=== PATIENT | male | born 1965 | race Hispanic/Latino ===

== ENCOUNTER 2018-12-02 00:43 | Emergency (ER) | payer SELFPAY ==
[2018-12-02 01:08] VITALS: BP 129/81; PULSE 103; RESP 20; TEMP 98; O2SAT 96
--- NOTE | 2018-12-02 01:18 | C.PDOC ---
History Of Present Illness Pt states he doesn't know why they brought him to the ed. Denies any suicidal or homicidal ideation. States he had some beers. Ambulating without any difficulty and clinically sober Time Seen by Provider: 12/02/18 01:16 Chief Complaint (Nursing): Substance Abuse History Per: Patient History/Exam Limitations: no limitations Onset/Duration Of Symptoms: Hrs Current Symptoms Are (Timing): Gone Suicide/Self Injury Attempted (Context): None Modifying Factor(s): Alcohol Severity: None Associated Symptoms: denies: Anger, Anxiety, Depression Involuntary Hold By: None Recent travel outside of the [place]: No Additional History Per: Patient Past Medical History Reviewed: Historical Data, Nursing Documentation, Vital Signs Vital Signs: Last Vital Signs Temp 98 F 12/02/18 01:01 Pulse 103 H 12/02/18 01:01 Resp 20 12/02/18 01:01 BP 129/81 12/02/18 01:01 Pulse Ox 96 12/02/18 01:01 - Medical History PMH: Depression, Schizophrenia Denies: Anxiety, Bipolar Disorder, Diabetes, Hepatitis, HIV, HTN, Personality Disorder, Chronic Kidney Disease, Seizures, Sexually Transmitted Disease - [facility] Procedures GROUP PSYCHOTHERAPY (09/14/17) Family History: States: Unknown Family Hx - Social History Hx Alcohol Use: Yes (drinks 2X a month) Hx Substance Use: No Review Of Systems Constitutional: Negative for: Fever, Chills Respiratory: Negative for: Shortness of Breath Gastrointestinal: Negative for: Abdominal Pain Musculoskeletal: Negative for: Back Pain Skin: Negative for: Rash Neurological: Negative for: Weakness Psych: Negative for: Anxiety Physical Exam - Physical Exam Appears: Non-toxic, No Acute Distress Chest: Symmetrical Cardiovascular: Rhythm Regular Gastrointestinal/Abdominal: Soft, No Tenderness Extremity: Normal ROM Extremity: Bilateral: Atraumatic Neurological/Psych: Oriented x3 ED Course And Treatment O2 Sat by Pulse Oximetry: 96 Pulse Ox Interpretation: Normal Reevaluation Time: 01:20 Reassessment Condition: Improved Medical Decision Making Medical Decision Making: Upon provider reevaluation patient is feeling better, is medically stable, and requires no further treatment in the ED at this time. Patient will be discharged home . Counseling was provided and all questions were answered regarding diagnosis and need for follow up with the referred clinic. There is agreement to discharge plan. Return if symptoms persist or worsen. Disposition Counseled Patient/Family Regarding: Studies Performed, Diagnosis, Need For Followup - Disposition Referrals: [facility] [Outside] Disposition: HOME/ ROUTINE Disposition Time: 01:16 Condition: FAIR Instructions: Alcohol Use - When Is Drinking a Problem? - Clinical Impression Clinical Impression: Alcohol abuse
== END 2018-12-02 01:43 | disposition home or self-care (01) ==
LOC: C.ER 00:43
DX: F10.10 Alcohol abuse, uncomplicated (principal); Y90.9 Presence of alcohol in blood, level not specified

== ENCOUNTER 2018-12-02 14:10 | Inpatient (IN) | payer SELFPAY ==
[2018-12-02 16:44] LABS: BASO # 0.1 K/uL (0.0-0.2); BASO % 1.1 % (0.0-2.0); EOS # 0.2 K/uL (0.0-0.7); EOS % 2.1 % (0.0-4.0); HEMOGLOBIN 15.5 g/dL (12.0-18.0); LYMPH # 1.7 K/uL (1.0-4.3); LYMPH % 20.9 % (20.0-40.0); MEAN CELL VOLUME 95.6 fL (80.0-94.0); MEAN CORPUSCULAR HEMOGLOBIN 33.3 pg (27.0-31.0); MEAN CORPUSCULAR HGB CONC 34.9 g/dL (33.0-37.0); MEAN PLATELET VOLUME 8.8 fL (7.2-11.7); MONO # 0.6 K/uL (0.0-0.8); MONO % 7.9 % (0.0-10.0); NEUT # 5.4 K/uL (1.8-7.0); NRBC % 0.1 % (0.0-2.0); RBC 4.64 Mil/uL (4.40-5.90); RED CELL DISTRIBUTION WIDTH 14.2 % (11.5-14.5); WHITE BLOOD COUNT 7.9 K/uL (4.8-10.8)
[2018-12-02 17:00] LABS: ALB/GLOB RATIO 1.6 (1.0-2.1); ALBUMIN 4.6 g/dL (3.5-5.0); ALT/SGPT 19 U/L (21-72); AST/SGOT 33 U/L (17-59); BLOOD UREA NITROGEN 18 mg/dL (9-20); CALCIUM 9.3 mg/dl (8.6-10.4); GFR NON-AFRICAN AMERICAN > 60
[2018-12-02 17:08] LABS: URINE BACTERIA RARE (<OCC); URINE BILIRUBIN NEGATIVE (NEGATIVE); URINE BLOOD NEGATIVE (NEGATIVE); URINE CLARITY Clear (Clear); URINE COLOR Yellow (YELLOW); URINE GLUCOSE (UA) NORMAL (Normal); URINE LEUKOCYTE ESTERASE NEG Leu/uL (Negative); URINE PROTEIN NEGATIVE (NEGATIVE); URINE UROBILINOGEN NORMAL mg/dL (0.2-1.0)
[2018-12-02 17:42] LABS: BARBITURATES, UR NEGATIVE (NEGATIVE); BENZODIAZEPINES, UR NEGATIVE (NEGATIVE); OPIATES, UR NEGATIVE (NEGATIVE); PHENCYCLIDINE, UR NEGATIVE (NEGATIVE)
--- NOTE | 2018-12-02 18:02 | C.PDOC ---
History Of Present Illness 53 year old male presents to the ED requesting cocaine and alcohol detox. Patient states his last use was yesterday. He denies suicidal/homicidal ideation at this time. Time Seen by Provider: 12/02/18 15:23 Chief Complaint (Nursing): Substance Abuse History Per: Patient History/Exam Limitations: no limitations Onset/Duration Of Symptoms: Hrs Current Symptoms Are (Timing): Still Present Suicide/Self Injury Attempted (Context): None Modifying Factor(s): Alcohol, Cocaine Associated Symptoms: denies: Suicidal Thoughts, Suicidal Plan Involuntary Hold By: None Recent travel outside of the [place]: No Additional History Per: Patient Past Medical History Reviewed: Historical Data, Nursing Documentation, Vital Signs Vital Signs: Last Vital Signs Temp 98 F 12/02/18 14:19 Pulse 102 H 12/02/18 14:19 Resp 20 12/02/18 14:19 BP 126/87 12/02/18 14:19 Pulse Ox 96 12/02/18 14:19 - Medical History PMH: Depression, Schizophrenia Denies: Anxiety, Bipolar Disorder, Diabetes, Hepatitis, HIV, HTN, Personality Disorder, Chronic Kidney Disease, Seizures, Sexually Transmitted Disease Surgical History: No Surg Hx - [facility] Procedures GROUP PSYCHOTHERAPY (09/14/17) Family History: States: Unknown Family Hx - Social History Hx Alcohol Use: Yes (drinks 2X a month) Hx Substance Use: Yes - Immunization History Hx Tetanus Toxoid Vaccination: No Hx Influenza Vaccination: Yes (05/2018) Hx Pneumococcal Vaccination: No Review Of Systems Psych: Positive for: Other (alcohol and cocaine detox ) Physical Exam - Physical Exam Appears: Non-toxic, No Acute Distress Skin: Normal Color, Warm, Dry Head: Atraumatic, Normacephalic Eye(s): bilateral: Normal Inspection Oral Mucosa: Moist Neck: Supple Chest: Symmetrical, No Deformity, No Tenderness Cardiovascular: Rhythm Regular, No Murmur Respiratory: Normal Breath Sounds, No Rales, No Rhonchi, No Wheezing Gastrointestinal/Abdominal: Normal Exam, Bowel Sounds, Soft Extremity: Normal ROM, Capillary Refill (less than 2 seconds ) Neurological/Psych: Oriented x3, Normal Speech, Normal Cognition ED Course And Treatment - Laboratory Results Result Diagrams: 12/02/18 16:38 12/02/18 16:38 Lab Results: Total Bilirubin 1.0 mg/dL (0.2-1.3) 12/02/18 16:38 AST 33 U/L (17-59) 12/02/18 16:38 ALT 19 U/L (21-72) L 12/02/18 16:38 Alkaline Phosphatase 94 U/L (38-126) 12/02/18 16:38 Total Protein 7.5 g/dL (6.3-8.3) 12/02/18 16:38 Albumin 4.6 g/dL (3.5-5.0) 12/02/18 16:38 Globulin 2.9 gm/dL (2.2-3.9) 12/02/18 16:38 Albumin/Globulin Ratio 1.6 (1.0-2.1) 12/02/18 16:38 Urine Color Yellow (YELLOW) 12/02/18 17:00 Urine Clarity Clear (Clear) 12/02/18 17:00 Urine pH 7.0 (5.0-8.0) 12/02/18 17:00 Ur Specific [place] 1.019 (1.003-1.030) 12/02/18 17:00 Urine Protein Negative mg/dL (NEGATIVE) 12/02/18 17:00 Urine Glucose (UA) Normal mg/dL (Normal) 12/02/18 17:00 Urine Ketones Negative mg/dL (NEGATIVE) 12/02/18 17:00 Urine Blood Negative (NEGATIVE) 12/02/18 17:00 Urine Nitrate Negative (NEGATIVE) 12/02/18 17:00 Urine Bilirubin Negative (NEGATIVE) 12/02/18 17:00 Urine Urobilinogen Normal mg/dL (0.2-1.0) 12/02/18 17:00 Ur Leukocyte Esterase Neg Tony/uL (Negative) 12/02/18 17:00 Urine WBC (Auto) 1 /hpf (0-5) 12/02/18 17:00 Urine RBC (Auto) < 1 /hpf (0-3) 12/02/18 17:00 Urine Bacteria Rare (<OCC) 12/02/18 17:00 O2 Sat by Pulse Oximetry: 96 (on RA ) Pulse Ox Interpretation: Normal Medical Decision Making Medical Decision Making: Assessment: substance abuse Progress: Bloodwork, urinalysis and Librium PO given. Disposition Discussed With : Gasper Tony Doctor Will See Patient In The: Hospital Counseled Patient/Family Regarding: Studies Performed, Diagnosis - Disposition Disposition: HOSPITALIZED Disposition Time: 18:02 Condition: FAIR - Clinical Impression Clinical Impression: Alcohol abuse - Scribe Statement The provider has reviewed the documentation as recorded by the Scribe (Carmen Webb) Provider Attestation: All medical record entries made by the Scribe were at my direction and perso edwina dictated by me. I have reviewed the chart and agree that the record accurately reflects my personal performance of the history, physical exam, medical decision making, and the department course for this patient. I have also personally directed, reviewed, and agree with the discharge instructions and disposition.
--- NOTE | 2018-12-02 21:04 | PCM.BM ---
Treatment Plan Problems - Problems identified on initial assessmt Anxiety related to substance use Date Initiated: 12/02/18 Time Initiated: 21:01 Assessment reference: NA Status: Active Denial Date Initiated: 12/02/18 Time Initiated: 21:04 Assessment reference: NA Status: Active Defensive Coping Date Initiated: 12/02/18 Time Initiated: 21:04 Assessment reference: NA Status: Active Treatment assets and liabiliti Patient Assests: cooperative, resourceful, cognitively intact Patient Liabilities: financial problems, poor support system, substance abuse - Milieu Protocol Maintain good personal hygiene: daily Encourage regular showers, daily Remind patient to perform daily oral care, daily Assist patient to perform ADL's Conduct patient checks and document Observation sheet: Q15 minutes Maintain personal safety: every shift Educate patient to report safety concerns to staff, every shift Monitor environment for contraband/sharps Medication safety: Monitor for expected outcome, potential side effects: every shift, Assess barriers to learning: every shift, Assess readiness for medication education: every shift
--- NOTE | 2018-12-03 07:51 | PCM.PSYCH ---
Initial Psychiatric Evaluation - Initial Psychiatric Evaluation Type of Admission: Voluntary Legal Status: Capacity Chief Complaint (in patient's own words): I came here to get help.' History of Present Illness and Precipitating Events: Patient is a 53 year old male, who came to the [facility] for alcohol detox. Patient reports a long history of drinking and schizophrenia. He reports history of multiple inpatient psychiatric hospitalizations. He was last discharged from [facility] last year. He reports of being compliant with his outpatient treatment and follow-up PACT team. He reports history of drinking and cocaine abuse. As per the patient he drinks 6-14 12oz beers on a daily basis. He also reports of abusing cocaine off and on $60-$80 worth. As per the patient, recently he relapsed on drinking and started consuming increasing amounts of beers. Yesterday he consumed more than 7 beers, started experiencing withdrawal symptoms, so he came to the hospital to get help. Patient reports withdrawal symptoms including anxiety, shakes, sweating, headaches, cramps and nausea. He reports irritable mood but denies any feelings of hopelessness or helplessness. He denies any suicidal ideation or any homicidal ideation. He denies any auditory or visual hallucinations or any paranoia. He denies any other substance abuse. Past medical history None reported Current Medications: Active Medications Generic Name Dose Route Start Last Admin Trade Name Freq PRN Reason Stop Dose Admin Chlordiazepoxide 25 mg 12/02/18 18:57 12/02/18 22:23 Librium PO 25 mg Q6 PRN Administration alcohol withdrawal Trazodone HCl 50 mg 12/02/18 19:44 12/02/18 22:23 Desyrel PO 50 mg HS PRN Administration Insomnia Past Psychiatric History - Past Psychiatric History Previous Treatment History: Inpatient Pertinent Medical Hx (Current Medical&Sleep Prob, Allergies): Allergies Allergy/AdvReac Type Severity Reaction Status Date / Time Penicillins Allergy RASH Verified 12/02/18 14:22 QUEtiapine [SEROquel] 50 mg PO BID tab 09/17/17 QUEtiapine [SEROquel] 200 mg PO HS tab 09/17/17 Review of Systems - Review of Systems All systems: reviewed and no additional remarkable complaints except - Psychiatric Psychiatric: Anxiety, Irritability. absent: Suicidal Ideation Mental Status Examination - Personal Presentation Personal Presentation: Looks stated age - Affect Affect: Constricted - Motor Activity Motor Activity: Calm - Reliability in Providing Information Reliability in Providing Information: Fair - Speech Speech: Organized - Mood Mood: Anxious - Formal Thought Process Formal Thought Process: No Impairment - Obsessions/Compulsions Obsessions: No Compulsions: No - Cognitive Functions Orientation: Person, Place, Situation, Time Sensorium: Alert Attention/Concentration: Attentive Abstract Thinking: [place] Estimate of Intelligence: Below average Judgement: Imparied, as evidence by: Poor judgement, Intact, as evidence by: Insight regarding need for hospitalization - Risk Risk: Withdrawal, Diminished functioning - Limitations Limitations: Living alone DSM 5 DX - DSM 5 DSM 5 Diagnosis: Alcohol withdrawal Alcohol use disorder severe Schizophrenia paranoid type continues - Recommended/Plan of Treatment Treatment Recommendations and Plan of Treatment: Alcohol withdrawal Alcohol use disorder severe Schizophrenia paranoid type continues -CBT -Psychoeducation -Supportive therapy and group therapy -Librium taper for alcohol withdrawal -Withdrawal medications including multivitamin/folic acid/thiamine -Seroquel for psychosis -Neurontin for augmentation -Trazodone for insomnia - Smoking Cessation Smoking Cessation Initiated: No
[2018-12-03] MEDS ORDERED: Aluminum Hydroxide/Magnesium Hydroxide Susp (30 mL) PO PRN (07:52)
[2018-12-03] MEDS: Multiple Vitamins Tab PO SCH (10:16)
--- NOTE | 2018-12-03 21:24 | RAD ---
Chest x-ray two views HISTORY: Rehab placement. COMPARISON: None available. Findings: Mild venous congestion. Right hilar prominence. Tortuous aorta. Mild cardiomegaly. Degenerative changes in the spine. Impression: Mild venous congestion. Right hilar prominence. Tortuous aorta. Mild cardiomegaly.
[2018-12-04] MEDS: Multiple Vitamins Tab PO SCH (09:20)
--- NOTE | 2018-12-04 11:37 | PCM.PYCHPN ---
Psychiatric Progress Note - Psychiatric Progress Note Patient seen today, length of contact: 16 min Patient Chief Complaint: I am still withdrawing from drinking..' Problems Identified/Issues Discussed: Patient was seen and evaluated, chart reviewed and discussed with staff. Patient reports withdrawal symptoms including shakes, anxiety, headache, nausea, cramps and irritability. He reports some anxiety but denies any feelings of hopelessness or helplessness. He denies any auditory or visual hallucinations. He is taking medication but denies any side effects. Symptoms are improving gradually but he needs to stay longer for further stabilization. Supportive therapy was given. Medication Change: Yes Medical Record Reviewed: Yes Mental Status Examination - Cognitive Function Orientation: Person, Place, Situation, Time Memory: Intact Attention: WNL Concentration: Poor Association: WNL Fund of Knowledge: Poor - Mood Mood: Anxious - Affect Affect: Constricted - Formal Thought Process Formal Thought Process: No Impairment - Suicidal Ideation Suicidal Ideation: No - Homicidal Ideation Homicidal Ideation: No Goal/Treatment Plan - Goal/Treatment Plan Need for Continued Stay: Remain at risks for inpatient hospitalization Progress Toward Problem(s) and Goals/Treatment Plan: Alcohol withdrawal Alcohol use disorder severe Schizophrenia paranoid type continues -CBT -Psychoeducation -Supportive therapy and group therapy -Librium taper for alcohol withdrawal -Withdrawal medications including multivitamin/folic acid/thiamine -Seroquel for psychosis -Neurontin for augmentation -Trazodone for insomnia - Smoking Cessation Smoking Cessation Initiated: No
[2018-12-04 17:33] VITALS: BP 138/89; PULSE 88; RESP 18; TEMP 97.3; O2SAT 95
[2018-12-05] MEDS: Multiple Vitamins Tab PO SCH (10:11)
--- NOTE | 2018-12-05 15:03 | PCM.PYCHDC ---
Mental Status Examination - Mental Status Examination Orientation: Person, Place, Situation, Time Memory: Intact Mood: Neutral Affect: Constricted Speech: Soft Attention: WNL Concentration: WNL Association: WNL Fund of Knowledge: WNL Formal Thought Process: No Impairment Suicidal Ideation: No Current Homicidal Ideation?: No Discharge Summary - Discharge Note Consultations:: List each consultation separately and include: 1. Reason for request. 2. Findings. 3. Follow-up Summary of Hospital Course include:: 1. Description of specific treatment plan utilized for patients during their course of treatmen. 2. Summarize the time- course for resolution of acute symptoms and/or regressed behaviors. 3. Describe issues identified and worked on during hospitalization. 4. Describe medication utilized. 5. Describe medical problems identified and treated. 6. Reassessment of suicide risk Summary of Hospital Course: Patient is a 53 year old male, who came to the [facility] for alcohol detox. Patient reports a long history of drinking and schizophrenia. He reports history of multiple inpatient psychiatric hospitalizations. He was last discharged from [facility] last year. He reports of being compliant with his outpatient treatment and follow-up PACT team. He reports history of drinking and cocaine abuse. As per the patient he drinks 6-14 12oz beers on a daily basis. He also reports of abusing cocaine off and on $60-$80 worth. As per the patient, recently he relapsed on drinking and s tarted consuming increasing amounts of beers. Yesterday he consumed more than 7 beers, started experiencing withdrawal symptoms, so he came to the hospital to get help. Patient reports withdrawal symptoms including anxiety, shakes, sweating, headaches, cramps and nausea. He reports irritable mood but denies any feelings of hopelessness or helplessness. He denies any suicidal ideation or any homicidal ideation. He denies any auditory or visual hallucinations or any paranoia. He denies any other substance abuse. Past medical history None reported - Final Diagnosis (DSM 5) Condition upon Discharge: FAIR Disposition: HOME/ ROUTINE Follow-up Treatment Plan: Alcohol withdrawal Alcohol use disorder severe Schizophrenia paranoid type continues -CBT -Psychoeducation -Supportive therapy and group therapy -Librium taper for alcohol withdrawal -Withdrawal medications including multivitamin/folic acid/thiamine -Seroquel for psychosis -Neurontin for augmentation -Trazodone for insomnia
== END 2018-12-05 15:31 | disposition left against medical advice (07) | DRG 894 ==
LOC: C.ER 14:10 → C.7D 18:01
PROVIDERS: ADMIT Psychiatry & Neurology Psychiatry; ATTEND Psychiatry & Neurology Psychiatry
PROC: HZ2ZZZZ Detoxification Services for Substance Abuse Treatment (ICD-10-PCS; principal; 2018-12-02)
PROC: HZ59ZZZ Individual Psychotherapy for Substance Abuse Treatment, Supportive (ICD-10-PCS; 2018-12-02)
PROC: GZ3ZZZZ Medication Management (ICD-10-PCS; 2018-12-02)
PROC: HZ59ZZZ Individual Psychotherapy for Substance Abuse Treatment, Supportive (ICD-10-PCS; 2018-12-02)
DX: F10.230 Alcohol dependence with withdrawal, uncomplicated (principal); F20.0 Paranoid schizophrenia; F14.10 Cocaine abuse, uncomplicated; Y90.0 Blood alcohol level of less than 20 mg/100 ml; G47.00 Insomnia, unspecified

== ENCOUNTER 2019-02-04 16:03 | Emergency (ER) | payer SELFPAY ==
--- NOTE | 2019-02-04 16:42 | C.PDOC ---
History Of Present Illness 53 y/o male is brought in by ambulance stating he was smoking K2 for the first time and started hallucinating. As per EMS, patient was intoxicated in public and couldnt get up. Patient denies any fall or trauma and has no complaints at this time. Patient is requesting to be discharged. Time Seen by Provider: 02/04/19 16:06 Chief Complaint (Nursing): Psychiatric Evaluation History Per: Patient, EMS History/Exam Limitations: no limitations Onset/Duration Of Symptoms: Hrs Current Symptoms Are (Timing): Still Present Past Medical History Reviewed: Historical Data, Nursing Documentation, Vital Signs Vital Signs: Last Vital Signs Temp 98.2 F 02/04/19 16:10 Pulse 109 H 02/04/19 16:10 Resp 16 02/04/19 16:10 BP 140/80 02/04/19 16:10 Pulse Ox 95 02/04/19 16:10 Primary Care Provider: FAMILY PROVIDER,NO - Medical History PMH: Depression, Schizophrenia Denies: Anxiety, Bipolar Disorder, Diabetes, Hepatitis, HIV, HTN, Personality Disorder, Chronic Kidney Disease, Seizures, Sexually Transmitted Disease - [facility] Procedures DETOXIFICATION SERVICES FOR SUBSTANCE ABUSE TREATMENT (12/02/18) GROUP PSYCHOTHERAPY (09/14/17) INDIV PSYCHOTHERAPY FOR SUBSTANCE ABUSE TREATMENT, SUPPORT (12/02/18) MEDICATION MANAGEMENT (12/02/18) Family History: States: No Known Family Hx - Social History Hx Alcohol Use: Yes (drinks 2-3X a month) Hx Substance Use: Yes - Immunization History Hx Tetanus Toxoid Vaccination: No Hx Influenza Vaccination: Yes (05/2018) Hx Pneumococcal Vaccination: No Review Of Systems Except As Marked, All Systems Reviewed And Found Negative. Cardiovascular: Negative for: Chest Pain Respiratory: Negative for: Shortness of Breath Gastrointestinal: Negative for: Nausea, Vomiting Psych: Positive for: Psychosis (hallucinations) Physical Exam - Physical Exam Appears: Well, Non-toxic, No Acute Distress Skin: Warm, Dry Head: Normacephalic Eye(s): bilateral: Normal Inspection, PERRL, EOMI Oral Mucosa: Moist Neck: Supple Cardiovascular: Rhythm Regular, No Murmur Respiratory: Normal Breath Sounds, No Rales, No Rhonchi, No Wheezing Gastrointestinal/Abdominal: Soft, No Tenderness Extremity: Bilateral: Atraumatic, Normal ROM Neurological/Psych: Oriented x3, Normal Speech Gait: Steady ED Course And Treatment O2 Sat by Pulse Oximetry: 95 (RA) Pulse Ox Interpretation: Normal Medical Decision Making Medical Decision Making: Patient presents as above, exam is unremarkable, VSS and patient has no c omplaints and is requesting discharge. Disposition Counseled Patient/Family Regarding: Diagnosis, Need For Followup - Disposition Referrals: [facility] [Outside] [facility] [Outside] Disposition: HOME/ ROUTINE Disposition Time: 16:41 Condition: STABLE Instructions: Drug Abuse and Drug Addiction (DC) Forms: [employer] ([place]ien), General Discharge Instructions - POA Present On Arrival: None - Clinical Impression Clinical Impression: Substance abuse - Scribe Statement The provider has reviewed the documentation as recorded by the Nathalieibbhavik Valdez Provider Attestation: All medical record entries made by the Nathalieibbhavik were at my direction and personally dictated by me. I have reviewed the chart and agree that the record accurately reflects my personal performance of the history, physical exam, medical decision making, and the department course for this patient. I have also personally directed, reviewed, and agree with the discharge instructions and disposition.
[2019-02-04 17:21] VITALS: BP 147/82; PULSE 100; RESP 20; TEMP 98
[2019-02-06 17:55] VITALS: O2SAT 95
== END 2019-02-04 17:21 | disposition home or self-care (01) ==
LOC: C.ER 16:03
DX: F19.10 Other psychoactive substance abuse, uncomplicated (principal)